=== PATIENT | female | born 1975 | race Hispanic/Latino ===

== ENCOUNTER → 2021-07-08 | Day surgery (SDC) | payer BC, OTHER ==
[~2021-07-08] MED LIST: AMBIEN10 MG PO; HYDROCHLOROTH12.5 MG PO; LISINOPRIL10 MG PO; METOCLOPRAMIDE HCL 10 MG/2ML VIAL ONE; MULTI-VITAMIN1 EACH PO; MULTIVITAMINS1 EAC7; OMEPRAZOLE40 MG PO; PHENTERMINE H37.5 M1 PO; PROTONIX20 MG PO; TIZANIDINE HCL4 M1 PO; TYLENOL WITH C1 EACH PO; ULTRAM 50MG50 MG PO; ULTRAM50 MG PO; Z.0.OMEPRAZOLE20 M1 PO; Z.0.ZOLPIDEM TARTRA1 PO; [UNRECOGNIZED DRUG - OTHER] PO
[2021-07-08 19:58] VITALS: BP 128/74
== END | disposition home or self-care (01) ==
LOC: OR 14:19
PROVIDERS: ATTEND Internal Medicine Gastroenterology
DX: K21.9 Gastro-esophageal reflux disease without esophagitis (principal); K44.9 Diaphragmatic hernia without obstruction or gangrene; K91.89 Other postprocedural complications and disorders of digestive system; K63.89 Other specified diseases of intestine; K29.60 Other gastritis without bleeding; I10 Essential (primary) hypertension; M54.9 Dorsalgia, unspecified; Z01.810 Encounter for preprocedural cardiovascular examination; Z01.812 Encounter for preprocedural laboratory examination; Z20.822 Contact with and (suspected) exposure to COVID-19
CPT/HCPCS: 43239; C9113; J2765; U0002

== ENCOUNTER 2023-09-28 08:56 | Outpatient (RCR) | payer OTHER ==
[~2023-09-28 08:56] MED LIST changes: -METOCLOPRAMIDE HCL 10 MG/2ML VIAL ONE
== END 2023-10-11 ==
LOC: PT 08:56
PROVIDERS: ATTEND Orthopaedic Surgery Adult Reconstructive Orthopaedic Surgery
DX: M25.561 Pain in right knee (principal)